=== PATIENT | female | born 1945 | race Caucasian/White ===

== ENCOUNTER 2018-06-02 17:23 | Emergency (ER) | payer MEDICARE, OTHER ==
[~2018-06-02] VITALS: Ht 154.9 cm; Wt 60.0 kg
[~2018-06-02 17:23] MED LIST: ACET-1008 PO; AMLO5TAB4 PO; DICL100G15 TOP; LIDO700A32 TOP; MECL12.584 PO; NO HOME MEDS; ONDA4TAB6 PO
[2018-06-02] MEDS ORDERED: TETanus/Pertussis (Acell)/Diphther VAC/PF (Tdap-Adult) 0.5ml syringe IM ONE (18:05)
[2018-06-02] MEDS ORDERED: LIDOcaine 1.5% w/epinephrine 1:200,000 5ml ampul IJ ONE (18:05)
[2018-06-02] MEDS ORDERED: LIDOcaine 1% w/epiNEPHrine 1:200,000 30ml vial IJ ONE (18:05)
[2018-06-02] MEDS ORDERED: HYDROcodone/acetaminophen 5mg/325mg tablet PO ONE (18:25)
[2018-06-02 19:21] VITALS: BP 119/75
== END 2018-06-02 20:07 | disposition home or self-care (01) ==
LOC: ER 17:24
DX: S01.01XA Laceration without foreign body of scalp, initial encounter (principal); E78.00 Pure hypercholesterolemia, unspecified; I10 Essential (primary) hypertension; G89.29 Other chronic pain; F12.90 Cannabis use, unspecified, uncomplicated; Z86.73 Personal history of transient ischemic attack (TIA), and cerebral infarction without residual deficits; Z90.49 Acquired absence of other specified parts of digestive tract; Z90.710 Acquired absence of both cervix and uterus; Z98.890 Other specified postprocedural states; Z88.2 Allergy status to sulfonamides; Z88.5 Allergy status to narcotic agent; Z88.8 Allergy status to other drugs, medicaments and biological substances; Z79.899 Other long term (current) drug therapy; W18.39XA Other fall on same level, initial encounter; Y93.89 Activity, other specified; Y92.89 Other specified places as the place of occurrence of the external cause; Y99.8 Other external cause status
CPT/HCPCS: 12002; 70450; 90471; 90715; 99284; J3490

== ENCOUNTER 2018-06-15 12:45 | Emergency (ER) | payer MEDICARE, OTHER ==
[~2018-06-15] VITALS: Ht 154.9 cm; Wt 54.1 kg
[2018-06-15 13:20] VITALS: BP 183/96
[2018-06-15] MEDS ORDERED: proCHLORperazine 10 MG/2 ml inj IM ONE (14:30)
[2018-06-15] MEDS ORDERED: ketorolac tromethamine 15mg/ml inj. IM ONE (14:30)
[2018-06-15] MEDS ORDERED: diphenhydrAMINE 25mg capsule PO ONE (14:30)
== END 2018-06-15 15:05 | disposition home or self-care (01) ==
LOC: ER 12:45
DX: S01.01XD Laceration without foreign body of scalp, subsequent encounter (principal); I10 Essential (primary) hypertension; E78.00 Pure hypercholesterolemia, unspecified; G89.29 Other chronic pain; F12.90 Cannabis use, unspecified, uncomplicated; Z90.49 Acquired absence of other specified parts of digestive tract; Z90.710 Acquired absence of both cervix and uterus; Z98.890 Other specified postprocedural states; Z88.2 Allergy status to sulfonamides; Z88.5 Allergy status to narcotic agent; Z88.8 Allergy status to other drugs, medicaments and biological substances; Z79.899 Other long term (current) drug therapy; X58.XXXD Exposure to other specified factors, subsequent encounter
CPT/HCPCS: 96372; 99283; J0780; J1885; Q0163

== ENCOUNTER 2020-01-28 07:48 | Emergency (ER) | payer BC, MEDICARE ==
[~2020-01-28] VITALS: Ht 154.9 cm; Wt 52.7 kg
[~2020-01-28 07:48] MED LIST changes: +MECL-183 PO; -MECL12.584 PO
[2020-01-28 07:58] VITALS: BP 135/73
[2020-01-28] MEDS ORDERED: CEPH-572 PO (08:04)
[2020-01-28] MEDS ORDERED: CLIN150C2 PO (08:04)
[2020-01-28] MEDS ORDERED: clindamycin 150mg capsule PO ONE (08:05)
[2020-01-28] MEDS ORDERED: cephalexin 250mg capsule PO ONE (08:05)
[2020-01-28] MEDS ORDERED: TETanus/Pertussis (Acell)/Diphther VAC/PF (Tdap-Adult) 0.5ml syringe IMVAC ONE (08:05)
[2020-01-28 08:41] LABS: CLARITY,URINE CLOUDY (Clear); COLOR,URINE YELLOW (Yellow); GLUCOSE, URINE NEGATIVE (Neg); KETONES,URINE NEGATIVE (Neg); LEUKOCYTE ESTERASE ,URINE MODERATE (Neg); NITRITES, URINE POSITIVE (Neg); OCCULT BLOOD,URINE SMALL (Neg); PH,URINE 5.5 (4.8-8.0); PROTEIN,URINE TRACE mg/dl (Neg); UROBILINOGEN,URINE 0.2 E.U/dL (0.2-1.0)
[2020-01-28 08:54] LABS: UA COLLECTION TYPE CLN CATCH MIDSTREAM
[2020-01-28 08:56] LABS: SQUAMOUS EPITHELIAL CELL,UR MANY /LPF (FEW)
[2020-01-28 08:57] LABS: WBC CLUMPS,URINE FEW /HPF (NEGATIVE); WBC,URINE TNTC /HPF (0-4)
[2020-01-28 08:59] LABS: BACTERIA,URINE 2+ /HPF (Neg)
== END 2020-01-28 08:48 | disposition home or self-care (01) ==
LOC: ER 07:49
DX: N39.0 Urinary tract infection, site not specified (principal); L02.31 Cutaneous abscess of buttock; G43.909 Migraine, unspecified, not intractable, without status migrainosus; G20 Parkinson's disease; E78.00 Pure hypercholesterolemia, unspecified; I10 Essential (primary) hypertension; F32.9 Major depressive disorder, single episode, unspecified; F12.90 Cannabis use, unspecified, uncomplicated; Z90.49 Acquired absence of other specified parts of digestive tract; Z90.710 Acquired absence of both cervix and uterus; Z98.890 Other specified postprocedural states; Z88.2 Allergy status to sulfonamides; Z86.73 Personal history of transient ischemic attack (TIA), and cerebral infarction without residual deficits; Z88.5 Allergy status to narcotic agent; Z88.8 Allergy status to other drugs, medicaments and biological substances; Z79.899 Other long term (current) drug therapy
CPT/HCPCS: 81001; 87070; 87077; 87186; 90471; 90715; 99283

== ENCOUNTER 2020-03-19 11:07 | Observation (INO) | payer BC ==
[~2020-03-19] VITALS: Ht 154.9 cm; Wt 52.7 kg
[2020-03-19 12:28] LABS: BASOPHILS # (AUTO) 0.1 X10'3 (0-0.2); BASOPHILS % (AUTO) 1.2 % (0-1); EOSINOPHILS # (AUTO) 0.1 X10'3 (0-0.9); EOSINOPHILS % (AUTO) 1.1 % (0-6); HEMOGLOBIN 14.2 g/dl (12.0-16.0); LYMPHOCYTES # (AUTO) 1.5 X10'3 (1.1-4.8); LYMPHOCYTES % (AUTO) 20.8 % (21-51); MEAN CORPUSCULAR HEMOGLOBIN 31.9 PG (27.0-31.0); MEAN CORPUSCULAR HGB CONC 33.7 g/dL (33.0-36.5); MEAN CORPUSCULAR VOLUME 94.8 FL (78-98); MEAN PLATELET VOLUME 8.1 FL (7.4-10.4); MONOCYTES # (AUTO) 0.7 X10'3 (0-0.9); MONOCYTES % (AUTO) 9.6 % (2-12); NEUTROPHILS # (AUTO) 4.9 X10'3 (1.8-7.7); NEUTROPHILS % (AUTO) 67.3 % (42-75); PLATELET COUNT 288 X10'3 (140-440); RED BLOOD COUNT 4.43 X10'6 (4.20-5.60); RED CELL DISTRIBUTION WIDTH 13.2 % (11.5-14.5); WHITE BLOOD COUNT 7.3 X10'3 (4.5-11.0)
[2020-03-19 12:42] LABS: ALANINE AMINOTRANSFERASE 7 U/L (12-78); ALBUMIN 3.9 G/DL (3.4-5.0); ALKALINE PHOSPHATASE 79 IU/L (46-116); ANION GAP 10 (8-16); ASPARTATE AMINO TRANSFERASE 22 U/L (10-37); BILIRUBIN,TOTAL 0.4 MG/DL (0.1-1.0); BLOOD UREA NITROGEN 17 MG/DL (7-18); BUN/CREATININE RATIO 28.8 (6.6-38.0); CALCIUM 9.4 MG/DL (8.5-10.1); CHLORIDE 104 MMOL/L (99-107); CREATININE 0.59 MG/DL (0.40-0.90); GLUCOSE 112 MG/DL (70-104); POTASSIUM 4.9 MMOL/L (3.5-5.1); SODIUM 140 MMOL/L (135-145); TOTAL CARBON DIOXIDE 25.9 MMOL/L (24-32); eGFR > 90 ML/MIN
[2020-03-19] MEDS ORDERED: aspirin 81mg tab.chew PO ONE (14:10)
[2020-03-19] MEDS: nitroGLYCERIN 0.4mg SUBLingual tab SL PRN ×2 (14:16→14:26)
[2020-03-19] MEDS ORDERED: morphine 4 MG/ML inj SYRINge IV ONE (15:40)
[2020-03-19] MEDS ORDERED: AMLO2.5T5 PO (16:07)
[2020-03-19] MEDS ORDERED: ATEN50TA PO (16:07)
[2020-03-19] MEDS ORDERED: ketorolac tromethamine 15mg/ml inj. IV ONE (16:10)
[2020-03-19] MEDS ORDERED: diphenhydrAMINE 50 mg/ml inj IV PRN (16:10)
[2020-03-19] MEDS ORDERED: methylPREDNISolone sod succ 125mg/2ml vial IV ONE (16:10)
[2020-03-19] MEDS ORDERED: acetaminophen 325mg tablet PO PRN ×2 (16:10)
[2020-03-19] MEDS ORDERED: acetaminophen 650mg rectal suppository RC PRN (16:10)
[2020-03-19] MEDS ORDERED: mag hydrox/Alum hydrox/simeth 30ml oral suspension PO PRN (16:10)
[2020-03-19] MEDS ORDERED: diphenhydrAMINE 25mg capsule PO PRN (16:10)
[2020-03-19] MEDS ORDERED: potassium Cl 20 mEq SR tablet PO PRN ×2 (16:10)
[2020-03-19] MEDS ORDERED: magnesium Cl slow-release 64mg tablet PO PRN (16:10)
[2020-03-19] MEDS ORDERED: ondansetron/PF 4mg/2ml inj IV PRN (16:10)
[2020-03-19] MEDS ORDERED: magnesium 2GM in 50ml NS 50 ML IV PRN (16:10)
[2020-03-19] MEDS ORDERED: nitroGLYCERIN 0.4mg SUBLingual tab SL PRN (16:10)
[2020-03-19] MEDS ORDERED: potassium CL 10mEq/100ml bag 100 ML IV PRN ×2 (16:10)
[2020-03-19] MEDS ORDERED: bisacodyl 10mg suppository rectal RC PRN (16:10)
[2020-03-19] MEDS ORDERED: metoclopramide 5 mg/ml inj IV PRN (16:10)
[2020-03-19] MEDS ORDERED: magnesium hydroxide 30ml (MOM) UD suspension PO PRN (16:10)
[2020-03-19] MEDS ORDERED: magnesium 4gm in 100ml NS 100 ML IV PRN (16:10)
[2020-03-19] MEDS ORDERED: ketorolac tromethamine 15mg/ml inj. IV PRN (16:10)
[2020-03-19] MEDS ORDERED: iohexol 350MG/ML 100ml bottle IV ONE (16:39)
[2020-03-19] MEDS: normal saline 1000ml 1,000 ML IV SCH ×2 (16:41→18:24)
[2020-03-19] MEDS: HYDROmorphone inj. 0.5 MG/0.5 ML DISP.SYRIN IV PRN ×2 (18:24→22:29)
[2020-03-19 19:30] VITALS: BP 164/88
[2020-03-19] MEDS ORDERED: temazepam 15mg capsule PO PRN (21:00)
[2020-03-19] MEDS: K and/or MAG REPLACEMENT MC SCH (21:55)
[2020-03-19] MEDS: famotidine 20mg tablet PO SCH (22:51)
[2020-03-19 23:00] VITALS: BP 170/83
[2020-03-20] MEDS: amLODIPine 2.5mg tablet PO SCH ×3 (00:37→12:47)
[2020-03-20] MEDS: atenolol 50mg tablet PO SCH ×3 (00:38→12:47)
[2020-03-20 02:00] VITALS: BP 129/71
[2020-03-20] MEDS: HYDROmorphone inj. 0.5 MG/0.5 ML DISP.SYRIN IV PRN ×3 (04:48→16:07)
[2020-03-20 06:00] VITALS: BP 129/65
--- NOTE | 2020-03-20 06:19 | NUR ---
Problems reprioritized. Patient report given, questions answered & plan of care reviewed with Silvana COBOS.
--- NOTE | 2020-03-20 06:20 | NUR ---
Patient in room PCU 3010. I have received report from Rosa M COBOS and had the opportunity to ask questions and assume patient care. Patient sitting up in bed, awake, alert, no signs of distress, no complaints at this time. Will continue to monitor.
[2020-03-20 07:02] LABS: ALANINE AMINOTRANSFERASE 15 U/L (12-78); ALBUMIN 3.4 G/DL (3.4-5.0); ALBUMIN/GLOBULIN RATIO 0.9 (1.1-1.5); ALKALINE PHOSPHATASE 71 IU/L (46-116); ANION GAP 10 (8-16); ASPARTATE AMINO TRANSFERASE 16 U/L (10-37); BILIRUBIN,TOTAL 0.3 MG/DL (0.1-1.0); BLOOD UREA NITROGEN 19 MG/DL (7-18); BUN/CREATININE RATIO 31.7 (6.6-38.0); CALCIUM 8.7 MG/DL (8.5-10.1); CHLORIDE 105 MMOL/L (99-107); CHOL/HDL RATIO 2.8 (0.00-4.99); CHOLESTEROL 235 MG/DL (0-200); GLUCOSE 129 MG/DL (70-104); HDL CHOLESTEROL 84 MG/DL (35-60); LDL CHOLESTEROL 138 MG/DL (50-100); MAGNESIUM 1.9 MG/DL (1.5-2.4); POTASSIUM 4.8 MMOL/L (3.5-5.1); SODIUM 138 MMOL/L (135-145); TOTAL CARBON DIOXIDE 22.8 MMOL/L (24-32); TOTAL PROTEIN 7.2 G/DL (6.4-8.2); TRIGLYCERIDES 65 MG/DL (20-135); eGFR > 90 ML/MIN
[2020-03-20] MEDS: K and/or MAG REPLACEMENT MC SCH (08:00)
[2020-03-20] MEDS: famotidine 20mg tablet PO SCH (08:00)
[2020-03-20] MEDS ORDERED: aspirin 81mg tablet.DR PO SCH (08:30)
--- NOTE | 2020-03-20 09:55 | NUR ---
PAGER ID: [phone] MESSAGE: Silvana levy [phone]. RE Pernell Valdovinos 3010. Echo back, prelim EF 70%. do you want to get a Mariana or can I feed the patient? Thanks!
[2020-03-20] MEDS ORDERED: regadenoson 0.4mg/5ml syringe IV PRN (10:00)
[2020-03-20] MEDS ORDERED: aminophylline 250mg/10ml inj. IV PRN (10:00)
[2020-03-20] MEDS ORDERED: metoprolol tartrate 1mg/ml inj IV PRN (10:00)
[2020-03-20] MEDS ORDERED: nitroGLYCERIN 0.4mg SUBLingual tab SL PRN (10:00)
[2020-03-20 11:00] VITALS: BP 168/76
[2020-03-20] MEDS ORDERED: ASPI-1071 PO (11:13)
[2020-03-20] MEDS ORDERED: PRED20TA PO (11:13)
[2020-03-20] MEDS ORDERED: MORP15TA PO (11:13)
[2020-03-20 15:00] VITALS: BP 163/76
--- NOTE | 2020-03-20 17:00 | NUR ---
Per MD order by Dr. Bolivar, patient is stable for discharge home. Discharge packet printed and reviewed with the patient. IV removed, tele monitor removed. All prescriptions sent to pharmacy of choice. Discharge instructions, follow up, and return precautions discussed with the patient. All questions answered. All belongings sent with patient. Patient escorted via wheelchair to private vehicle to go home with family
== END 2020-03-20 17:00 | disposition home or self-care (01) ==
LOC: ER 11:08 → ED HOLD 16:07 → PCU 3S 19:28
PROVIDERS: ADMIT Family Medicine; ATTEND Family Medicine
DX: R07.89 Other chest pain (principal); I25.10 Atherosclerotic heart disease of native coronary artery without angina pectoris; J45.909 Unspecified asthma, uncomplicated; I11.0 Hypertensive heart disease with heart failure; I50.9 Heart failure, unspecified; M81.0 Age-related osteoporosis without current pathological fracture; M48.50XA Collapsed vertebra, not elsewhere classified, site unspecified, initial encounter for fracture; G20 Parkinson's disease; G43.909 Migraine, unspecified, not intractable, without status migrainosus; E78.00 Pure hypercholesterolemia, unspecified; G89.29 Other chronic pain; M79.7 Fibromyalgia; F32.9 Major depressive disorder, single episode, unspecified; Z86.73 Personal history of transient ischemic attack (TIA), and cerebral infarction without residual deficits; Z87.442 Personal history of urinary calculi; Z90.49 Acquired absence of other specified parts of digestive tract; Z90.710 Acquired absence of both cervix and uterus; Z79.899 Other long term (current) drug therapy; Z88.2 Allergy status to sulfonamides; Z88.5 Allergy status to narcotic agent; Z88.8 Allergy status to other drugs, medicaments and biological substances
CPT/HCPCS: 36415; 71045; 71275; 80053; 80061; 83735; 83880; 84443; 84484; 85025; 87081; 93005; 93306; 96361; 96374; 96375; 96376; 99285; G0378; J1170; J1885; J2270; J2930; J7030; Q9967

== ENCOUNTER 2022-02-13 12:53 | Emergency (ER) | payer BC, OTHER ==
[~2022-02-13] VITALS: Ht 154.9 cm; Wt 53.6 kg
[~2022-02-13 12:53] MED LIST changes: -ACET-1008 PO; +AMLO2.5T5 PO; -AMLO5TAB4 PO; +ASPI-1071 PO; +ATEN50TA PO; -DICL100G15 TOP; -LIDO700A32 TOP; -MECL-183 PO; -NO HOME MEDS; -ONDA4TAB6 PO
[2022-02-13] MEDS ORDERED: dexamethasone 4mg tablet PO ONE (14:35)
--- NOTE | 2022-02-13 15:39 | NUR ---
COV POSITIVE REPORTED TO ER
[2022-02-13 16:12] VITALS: BP 177/96
== END 2022-02-13 16:16 | disposition home or self-care (01) ==
LOC: ER 12:54
DX: U07.1 COVID-19 (principal); I11.9 Hypertensive heart disease without heart failure; E78.00 Pure hypercholesterolemia, unspecified; J45.909 Unspecified asthma, uncomplicated; G89.29 Other chronic pain; F32.A Depression, unspecified; G43.909 Migraine, unspecified, not intractable, without status migrainosus; G20 Parkinson's disease; F12.10 Cannabis abuse, uncomplicated; Z88.2 Allergy status to sulfonamides; Z79.899 Other long term (current) drug therapy; Z90.49 Acquired absence of other specified parts of digestive tract
CPT/HCPCS: 71046; 87635; 99284; C9803

== ENCOUNTER 2022-06-04 14:04 | Emergency (ER) | payer OTHER, MEDICAID ==
[~2022-06-04] VITALS: Ht 154.9 cm; Wt 54.1 kg
[2022-06-04 15:00] LABS: BASOPHILS # (AUTO) 0.1 X10'3 (0-0.2); EOSINOPHILS # (AUTO) 0.2 X10'3 (0-0.9); EOSINOPHILS % (AUTO) 1.9 % (0-6); HEMATOCRIT 37.3 % (35.0-45.0); HEMOGLOBIN 12.5 g/dl (12.0-16.0); LYMPHOCYTES # (AUTO) 2.3 X10'3 (1.1-4.8); LYMPHOCYTES % (AUTO) 23.3 % (21-51); MEAN CORPUSCULAR HEMOGLOBIN 30.8 PG (27.0-31.0); MEAN CORPUSCULAR HGB CONC 33.4 g/dL (33.0-36.5); MEAN CORPUSCULAR VOLUME 92.2 FL (78-98); MEAN PLATELET VOLUME 7.4 FL (7.4-10.4); MONOCYTES # (AUTO) 1.2 X10'3 (0-0.9); MONOCYTES % (AUTO) 12.9 % (2-12); NEUTROPHILS # (AUTO) 5.9 X10'3 (1.8-7.7); NEUTROPHILS % (AUTO) 60.9 % (42-75); PLATELET COUNT 477 X10'3 (140-440); RED BLOOD COUNT 4.04 X10'6 (4.20-5.60); RED CELL DISTRIBUTION WIDTH 13.2 % (11.5-14.5); WHITE BLOOD COUNT 9.7 X10'3 (4.5-11.0)
[2022-06-04 15:06] LABS: ALANINE AMINOTRANSFERASE 30 U/L (12-78); ALBUMIN 3.4 G/DL (3.4-5.0); ALBUMIN/GLOBULIN RATIO 0.9 (1.1-1.5); ALKALINE PHOSPHATASE 105 IU/L (46-116); ANION GAP 8 (8-16); ASPARTATE AMINO TRANSFERASE 28 U/L (10-37); BILIRUBIN,TOTAL 0.3 MG/DL (0.1-1.0); BLOOD UREA NITROGEN 16 MG/DL (7-18); BUN/CREATININE RATIO 22.5 (6.6-38.0); CALCIUM 9.5 MG/DL (8.5-10.1); CHLORIDE 105 MMOL/L (99-107); CREATININE 0.71 MG/DL (0.40-0.90); GLUCOSE 106 MG/DL (70-104); LIPASE 101 U/L (73-393); SODIUM 136 MMOL/L (135-145); TOTAL PROTEIN 7.4 G/DL (6.4-8.2); eGFR 80 ML/MIN
[2022-06-04 15:09] LABS: CLARITY,URINE CLOUDY (Clear); COLOR,URINE YELLOW (Yellow); GLUCOSE, URINE NEGATIVE (Neg); KETONES,URINE TRACE mg/dl (Neg); LEUKOCYTE ESTERASE ,URINE SMALL (Neg); NITRITES, URINE POSITIVE (Neg); OCCULT BLOOD,URINE NEGATIVE (Neg); PH,URINE 5.5 (4.8-8.0); PROTEIN,URINE NEGATIVE (Neg); UROBILINOGEN,URINE 0.2 E.U/dL (0.2-1.0)
[2022-06-04 15:16] LABS: UA COLLECTION TYPE CLN CATCH MIDSTREAM
[2022-06-04 15:19] LABS: BACTERIA,URINE 4+ /HPF (Neg); MUCUS STRANDS NONE SEEN /LPF (Neg); RBC,URINE NONE SEEN /HPF (0-2); SQUAMOUS EPITHELIAL CELL,UR MANY /LPF (FEW); WBC CLUMPS,URINE FEW /HPF (NEGATIVE); WBC,URINE 50-100 /HPF (0-4)
[2022-06-04] MEDS ORDERED: LACT1CAP65 PO (16:52)
[2022-06-04] MEDS ORDERED: PANT-47 PO (16:52)
[2022-06-04] MEDS ORDERED: CEPH250T PO (16:52)
[2022-06-04] MEDS ORDERED: ketorolac trometh inj. 60 MG/2 ML VIAL IM ONE (16:55)
[2022-06-04] MEDS ORDERED: cephalexin 250mg capsule PO ONE (16:55)
[2022-06-04] MEDS ORDERED: metoclopramide 10mg tablet PO ONE (16:55)
[2022-06-04] MEDS ORDERED: LORazepam 1 MG tablet PO ONE (16:55)
[2022-06-04 17:19] VITALS: BP 144/79
== END 2022-06-04 17:21 | disposition home or self-care (01) ==
LOC: ER 14:04
DX: N39.0 Urinary tract infection, site not specified (principal); G43.909 Migraine, unspecified, not intractable, without status migrainosus; E78.00 Pure hypercholesterolemia, unspecified; G89.29 Other chronic pain; I50.9 Heart failure, unspecified; I11.0 Hypertensive heart disease with heart failure; F12.90 Cannabis use, unspecified, uncomplicated; Z88.2 Allergy status to sulfonamides; Z98.890 Other specified postprocedural states; Z90.710 Acquired absence of both cervix and uterus
CPT/HCPCS: 36415; 80053; 81001; 83690; 85025; 96372; 99284; J1885

== ENCOUNTER 2022-06-09 10:42 | Emergency (ER) | payer MEDICAID, MEDICARE, OTHER ==
[~2022-06-09] VITALS: Ht 154.9 cm; Wt 51.5 kg
[~2022-06-09 10:42] MED LIST changes: +CEPH250T PO; +LACT1CAP65 PO; +PANT-47 PO
[2022-06-09 11:16] VITALS: BP 151/67
[2022-06-09 11:55] LABS: BASOPHILS # (AUTO) 0.1 X10'3 (0-0.2); BASOPHILS % (AUTO) 1.2 % (0-1); EOSINOPHILS # (AUTO) 0.3 X10'3 (0-0.9); EOSINOPHILS % (AUTO) 2.7 % (0-6); HEMATOCRIT 36.3 % (35.0-45.0); HEMOGLOBIN 11.8 g/dl (12.0-16.0); LYMPHOCYTES # (AUTO) 1.8 X10'3 (1.1-4.8); LYMPHOCYTES % (AUTO) 15.4 % (21-51); MEAN CORPUSCULAR HEMOGLOBIN 30.1 PG (27.0-31.0); MEAN CORPUSCULAR HGB CONC 32.6 g/dL (33.0-36.5); MEAN CORPUSCULAR VOLUME 92.3 FL (78-98); MEAN PLATELET VOLUME 7.4 FL (7.4-10.4); MONOCYTES % (AUTO) 8.4 % (2-12); NEUTROPHILS # (AUTO) 8.6 X10'3 (1.8-7.7); NEUTROPHILS % (AUTO) 72.3 % (42-75); PLATELET COUNT 477 X10'3 (140-440); RED BLOOD COUNT 3.94 X10'6 (4.20-5.60); RED CELL DISTRIBUTION WIDTH 13.6 % (11.5-14.5); WHITE BLOOD COUNT 11.8 X10'3 (4.5-11.0)
[2022-06-09 12:10] LABS: ALANINE AMINOTRANSFERASE 25 U/L (12-78); ALBUMIN 3.4 G/DL (3.4-5.0); ALBUMIN/GLOBULIN RATIO 0.9 (1.1-1.5); ALKALINE PHOSPHATASE 99 IU/L (46-116); ANION GAP 11 (8-16); ASPARTATE AMINO TRANSFERASE 30 U/L (10-37); BILIRUBIN,TOTAL 0.3 MG/DL (0.1-1.0); BLOOD UREA NITROGEN 15 MG/DL (7-18); BUN/CREATININE RATIO 24.2 (6.6-38.0); CALCIUM 9.1 MG/DL (8.5-10.1); CHLORIDE 104 MMOL/L (99-107); CREATININE 0.62 MG/DL (0.40-0.90); GLUCOSE 96 MG/DL (70-104); POTASSIUM 4.1 MMOL/L (3.5-5.1); SODIUM 137 MMOL/L (135-145); TOTAL PROTEIN 7.2 G/DL (6.4-8.2); eGFR > 90 ML/MIN
== END 2022-06-09 18:52 | disposition left against medical advice (07) ==
LOC: ER 10:43
DX: R07.9 Chest pain, unspecified (principal); Z53.21 Procedure and treatment not carried out due to patient leaving prior to being seen by health care provider
CPT/HCPCS: 36415; 71045; 80053; 83880; 84484; 85025; 93005

== ENCOUNTER 2023-06-26 15:29 | Emergency (ER) | payer OTHER ==
[~2023-06-26] VITALS: Ht 154.9 cm; Wt 55.6 kg
[~2023-06-26 15:29] MED LIST changes: -CEPH250T PO
[2023-06-26 15:30] VITALS: BP 157/73; PULSE 73; RESP 16; TEMP 98.7; O2SAT 98
[2023-06-26] MEDS ORDERED: AZIT-164 PO (16:22)
== END 2023-06-26 16:55 | disposition home or self-care (01) ==
LOC: ER 15:29
DX: J20.9 Acute bronchitis, unspecified (principal); Z20.822 Contact with and (suspected) exposure to COVID-19; G43.909 Migraine, unspecified, not intractable, without status migrainosus; I25.10 Atherosclerotic heart disease of native coronary artery without angina pectoris; E78.00 Pure hypercholesterolemia, unspecified; I10 Essential (primary) hypertension; J45.909 Unspecified asthma, uncomplicated; G89.29 Other chronic pain; M79.7 Fibromyalgia; G20.A1 Parkinson's disease without dyskinesia, without mention of fluctuations; F12.90 Cannabis use, unspecified, uncomplicated; Z72.89 Other problems related to lifestyle; Z90.710 Acquired absence of both cervix and uterus; Z88.2 Allergy status to sulfonamides; Z88.8 Allergy status to other drugs, medicaments and biological substances; Z91.041 Radiographic dye allergy status; Z79.82 Long term (current) use of aspirin; Z79.899 Other long term (current) drug therapy
CPT/HCPCS: 36415; 71046; 87811; 99284

== ENCOUNTER 2023-07-13 18:15 | Emergency (ER) | payer OTHER ==
[~2023-07-13] VITALS: Ht 162.6 cm; Wt 54.5 kg
[~2023-07-13 18:15] MED LIST changes: +AZIT-164 PO
[2023-07-13] MEDS ORDERED: ketorolac trometh inj. 60 MG/2 ML VIAL IM ONE (18:25)
[2023-07-13 19:28] VITALS: BP 129/75; PULSE 67; RESP 18; TEMP 98; O2SAT 98
== END 2023-07-13 19:33 | disposition home or self-care (01) ==
LOC: ER 18:16
DX: L90.5 Scar conditions and fibrosis of skin (principal); M79.10 Myalgia, unspecified site; M54.9 Dorsalgia, unspecified; Y93.89 Activity, other specified; Y92.89 Other specified places as the place of occurrence of the external cause; Y99.8 Other external cause status; Y90.9 Presence of alcohol in blood, level not specified
CPT/HCPCS: 72100; 96372; 99284; J1885

== ENCOUNTER 2023-10-21 15:04 | Emergency (ER) | payer OTHER ==
[~2023-10-21] VITALS: Ht 162.6 cm; Wt 54.0 kg
[~2023-10-21 15:04] MED LIST changes: -AZIT-164 PO
[2023-10-21 15:32] VITALS: BP 175/83; PULSE 68; RESP 18; TEMP 97.9; O2SAT 98
[2023-10-21 16:25] LABS: BILIRUBIN,URINE NEGATIVE (Neg); CLARITY,URINE CLOUDY (Clear); COLOR,URINE YELLOW (Yellow); GLUCOSE, URINE NEGATIVE (Neg); KETONES,URINE NEGATIVE (Neg); LEUKOCYTE ESTERASE ,URINE MODERATE (Neg); NITRITES, URINE POSITIVE (Neg); OCCULT BLOOD,URINE NEGATIVE (Neg); PROTEIN,URINE NEGATIVE (Neg); UROBILINOGEN,URINE 0.2 E.U/dL (0.2-1.0)
[2023-10-21 16:25] LABS: BASOPHILS # (AUTO) 0.1 X10'3 (0-0.2); BASOPHILS % (AUTO) 1.7 % (0-1); EOSINOPHILS # (AUTO) 0.1 X10'3 (0-0.9); EOSINOPHILS % (AUTO) 2.2 % (0-6); HEMATOCRIT 38.8 % (35.0-45.0); LYMPHOCYTES # (AUTO) 1.4 X10'3 (1.1-4.8); LYMPHOCYTES % (AUTO) 23.2 % (21-51); MEAN CORPUSCULAR HEMOGLOBIN 31.6 PG (27.0-31.0); MEAN CORPUSCULAR HGB CONC 33.5 g/dL (33.0-36.5); MEAN CORPUSCULAR VOLUME 94.4 FL (78-98); MEAN PLATELET VOLUME 8.3 FL (7.4-10.4); MONOCYTES # (AUTO) 0.7 X10'3 (0-0.9); MONOCYTES % (AUTO) 10.9 % (2-12); NEUTROPHILS # (AUTO) 3.8 X10'3 (1.8-7.7); PLATELET COUNT 285 X10'3 (140-440); RED BLOOD COUNT 4.11 X10'6 (4.20-5.60); RED CELL DISTRIBUTION WIDTH 14.8 % (11.5-14.5); WHITE BLOOD COUNT 6.1 X10'3 (4.5-11.0)
[2023-10-21 16:33] LABS: UA COLLECTION TYPE CLN CATCH MIDSTREAM
[2023-10-21 16:46] LABS: BACTERIA,URINE 4+ /HPF (Neg); SQUAMOUS EPITHELIAL CELL,UR MODERATE /LPF (FEW)
[2023-10-21 16:46] LABS: ALBUMIN 3.7 G/DL (3.4-5.0); ANION GAP 5 (8-16); BLOOD UREA NITROGEN 18 MG/DL (7-18); BUN/CREATININE RATIO 28.1 (10.0-20.0); CHLORIDE 104 MMOL/L (99-107); CREATININE 0.64 MG/DL (0.40-0.90); GLUCOSE 94 MG/DL (70-104); LIPASE 49 U/L (16-77); POTASSIUM 4.5 MMOL/L (3.5-5.1); SODIUM 137 MMOL/L (135-145); TOTAL CARBON DIOXIDE 27.9 MMOL/L (24-32); eCRCL 61 ML/MIN; eGFR 90 ML/MIN
[2023-10-21 16:47] LABS: RBC,URINE NONE SEEN /HPF (0-2); WBC,URINE TNTC /HPF (0-4)
[2023-10-21] MEDS: cephalexin 250mg capsule PO ONE (16:51)
[2023-10-21] MEDS ORDERED: CEPH-585 PO (17:29)
== END 2023-10-21 17:47 | disposition home or self-care (01) ==
LOC: ER 15:05
DX: N39.0 Urinary tract infection, site not specified (principal); Z88.2 Allergy status to sulfonamides; Z88.8 Allergy status to other drugs, medicaments and biological substances; Z86.73 Personal history of transient ischemic attack (TIA), and cerebral infarction without residual deficits; G43.909 Migraine, unspecified, not intractable, without status migrainosus; I25.10 Atherosclerotic heart disease of native coronary artery without angina pectoris; G20.A1 Parkinson's disease without dyskinesia, without mention of fluctuations; E78.00 Pure hypercholesterolemia, unspecified; G89.29 Other chronic pain; F32.9 Major depressive disorder, single episode, unspecified; I11.0 Hypertensive heart disease with heart failure; I50.9 Heart failure, unspecified; Z90.49 Acquired absence of other specified parts of digestive tract; Z90.710 Acquired absence of both cervix and uterus; F12.90 Cannabis use, unspecified, uncomplicated; Z20.822 Contact with and (suspected) exposure to COVID-19
CPT/HCPCS: 36415; 71045; 80048; 81001; 83690; 85025; 87077; 87088; 87186; 87502; 87503; 87634; 87811; 99284